=== PATIENT | male | born 1985 | race Caucasian/White ===

== ENCOUNTER 2016-11-08 10:43 | Day surgery (SDC) | payer BC ==
[2016-11-06 15:40] VITALS: BMI 25.8
[2016-11-08 11:00] VITALS: TEMP 97.2
[2016-11-08] MEDS: LACTATED RINGERS 1,000 ML IV SCH ×2 (11:09→11:17)
[2016-11-08] MEDS ORDERED: fentaNYL (PF) 50 MCG/ML 2 ML AMP ONE (11:21)
[2016-11-08] MEDS ORDERED: PROPOFOL 10 MG/ML 20 ML VIAL IV ONE (11:21)
[2016-11-08] MEDS ORDERED: MIDAZOLAM 2 MG/2 ML VIAL ONE (11:21)
--- NOTE | 2016-11-08 11:29 | P.PCN ---
Date of Procedure: 11/08/16 Procedure(s) Performed: BRIEF HISTORY: Patient is a 31-year-old, pleasant, white male, scheduled for an upper endoscopy as part of evaluation of intermittent epigastric pain. He has been having episodes of severe epigastric pain about 2 weeks ago when to the emergency room in the care of [facility] and was started on Prilosec 20 mg daily and discharged home. Patient had a similar episode 7 years ago. Because of these recurrent symptoms is concerned of peptic ulcer disease and had discomfort upper endoscopy to evaluate further. PROCEDURE PERFORMED: Esophagogastroduodenoscopy with biopsy. PREOPERATIVE DIAGNOSIS: Intermittent episodes of epigastric pain. IV sedation per anesthesia. PROCEDURE: After informed consent was obtained, the patient was brought into the endoscopy unit. IV conscious sedation was administered by Anesthesia under continuous monitoring. Initially the Olympus GIF-140 video endoscope was inserted into the mouth. Esophagus intubated without any difficulty. It was gradually advanced into the stomach and duodenum and carefully examined. The bulb and the second part of the duodenum appeared normal. Biopsies were done from this area to rule out celiac disease. The scope at this time was withdrawn to the stomach, adequately insufflated with air, and upon careful examination, mucosa of the antrum, had mild gastritis and biopsies were done from this area. The body, cardia and the fundus appeared normal. The scope was then withdrawn into the esophagus. The GE junction was located at 39 cm from the incisors. The esophagus appeared normal. There were no erosions or ulcerations seen and the patient tolerated the procedure well. IMPRESSION: 1. Mild antral gastritis gastritis. 2. No evidence of esophagitis or peptic ulcer disease. RECOMMENDATIONS: The findings of this examination were discussed with the patient as well as his family. He was advised to follow with the biopsy results. He will continue Prilosec 20 mg daily for a month and then stop the medication and take as needed.
[2016-11-08 11:48] VITALS: BP 105/65; PULSE 69; RESP 18
== END 2016-11-08 12:45 | disposition home or self-care (01) ==
LOC: ORWHC2ENDO 10:43 → EDSEX 11:55 → ORWHC2ENDO 12:45
PROVIDERS: ATTEND Internal Medicine Gastroenterology
DX: K29.50 Unspecified chronic gastritis without bleeding (principal); K21.9 Gastro-esophageal reflux disease without esophagitis; Z79.2 Long term (current) use of antibiotics; Z79.899 Other long term (current) drug therapy; Z87.891 Personal history of nicotine dependence
CPT/HCPCS: 88305; 88342; 43239; J2250; J3010; J2704

== ENCOUNTER 2017-04-14 17:08 | Emergency (ER) | payer BC ==
[2017-04-14 17:25] VITALS: BP 131/81; PULSE 78; RESP 16; TEMP 97.2
--- NOTE | 2017-04-14 17:49 | ED ---
General Adult HPI - General Chief complaint: Wound/Laceration Stated complaint: stitches infected Time Seen by Provider: 04/14/17 17:26 Source: patient, RN notes reviewed Mode of arrival: ambulatory Limitations: no limitations - History of Present Illness Initial comments: 31 yo male presents to the ER with cc of right hand suture infection. Patient has stasis placed over one week ago. He states he's noticed some puslike discharge from the areas that he was concerned. His been some redness and some pain. Patient denies any fever chills with this. Patient denies any cough cold runny nose. Patient was concerned due to his symptoms without that he should be seen. Patient denies any recent fever, chills, shortness of breath, chest pain, back pain, abdominal pain, nausea vomiting, numbness or tingling, dysuria or hematuria, constipation or diarrhea, headaches or visual changes, or any other current symptoms. - Related Data Home Medications Medication Instructions Recorded Confirmed Amoxicillin 500 mg PO Q8H 11/06/16 11/08/16 L.acidoph,Paracasei, B.lactis 1 each PO DAILY 11/06/16 11/08/16 [Probiotic] Omeprazole 40 mg PO DAILY 11/06/16 11/08/16 Vitamin B Complex 1 each PO DAILY 11/06/16 11/08/16 Previous Rx's Medication Instructions Recorded Sulfamethox-Tmp 800-160Mg [Bactrim 2 each PO Q12HR #56 tab 04/14/17 DS 800-160 mg] Allergies Allergy/AdvReac Type Severity Reaction Status Date / Time No Known Allergies Allergy Verified 04/14/17 17:25 Review of Systems ROS Statement: Those systems with pertinent positive or pertinent negative responses have been documented in the HPI. ROS Other: All systems not noted in ROS Statement are negative. Past Medical History Past Medical History: GERD/Reflux Additional Past Medical History / Comment(s): upper abdominal pain, hemorrhoids History of Any Multi-Drug Resistant Organisms: None Reported Past Surgical History: Orthopedic Surgery Additional Past Surgical History / Comment(s): lt hand surgery with screws Past Anesthesia/Blood Transfusion Reactions: No Reported Reaction Past Psychological History: No Psychological Hx Reported Smoking Status: Former smoker Past Alcohol Use History: Occasional Past Drug Use History: None Reported - Past Family History Father Family Medical History: Myocardial Infarction (DC) General Exam - General Exam Comments Initial Comments: General: The patient is awake and alert, in no distress, and does not appear acutely ill. Neck: The neck is supple, there is no tenderness. Cardiovascular: There is a regular rate and rhythm. No murmur, rub or gallop is appreciated. Respiratory: Lungs are clear to auscultation, respirations are non-labored, breath sounds are equal. No wheezes, stridor, rales, or rhonchi. Musculoskeletal: sensation intact. Full range motion of the right hand. His. Before sutures in the patient's right thumb area with some associated redness. No fluctuance noted at this time. full range of motion, 5/5 muscle strength testing. Neurological: CN II-XII intact, There are no obvious motor or sensory deficits. Coordination appears grossly intact. Speech is normal. Skin: Skin is warm and dry and no rashes or lesions are noted. Psychiatric: Normal mood and affect. Limitations: no limitations Course Vital Signs 04/14/17 17:22 Temperature 97.2 F L Pulse Rate 78 Respiratory 16 Rate Blood Pressure 131/81 O2 Sat by Pulse 99 Oximetry Procedures - Procedures Initial comment: The area was cleaned and prepped. Patient underwent suture removal of 4 sutures. Patient tolerated well. Does appear to be a infection to the area at this time. Medical Decision Making - Medical Decision Making 31 yo male presents with cc of what appears to be a right thumb laceration with sutures intact however there is concern for infection. This and sutures removed. The patient on Bactrim for infection. We discussed return for follow- up and all questions. Patient stated the Timothy they're given plan. This time we will be discharged home. - Radiology Data Radiology results: report reviewed, image reviewed Disposition Clinical Impression: Laceration of right thumb with infection, Visit for suture removal Disposition: HOME SELF-CARE Condition: Stable Instructions: Wound Infection (ED) Additional Instructions: Please use medication as discussed. Please follow up with family doctor if symptoms have not improved over the next two days. Please return to the emergency room if your symptoms increase or worsen or for any other concerns. Prescriptions: Sulfamethox-Tmp 800-160Mg [Bactrim DS 800-160 mg] 2 each PO Q12HR #56 tab Referrals: Shayan Prieto DO [STAFF PHYSICIAN] - 1-2 days Time of Disposition: 18:03
--- NOTE | 2017-04-14 18:00 | XR ---
EXAMINATION TYPE: XR hand complete RT DATE OF EXAM: 04/14/2017 CLINICAL HISTORY: Red and swollen first metacarpal area after stitches have been removed TECHNIQUE: Frontal, lateral and oblique images of the right hand are obtained. COMPARISON: None. FINDINGS: There is positional subluxation of the first metacarpal phalangeal joint. No evidence of f rank dislocation or fracture. Mild soft tissue swelling is seen over the radial aspect of the first p halanx with no subcutaneous emphysema or periosteal reaction to suggest osteomyelitis. IMPRESSION: 1. Soft tissue swelling over the lateral first digit with no periosteal reaction or subcutaneous emph ysema. No radiographic evidence of osteomalacia is. 2. There is no acute fracture or dislocation in the right hand.
== END 2017-04-14 18:12 | disposition home or self-care (01) ==
LOC: EC 17:08
DX: T81.4XXA Infection following a procedure, initial encounter (principal); L08.9 Local infection of the skin and subcutaneous tissue, unspecified; K21.9 Gastro-esophageal reflux disease without esophagitis; Z79.899 Other long term (current) drug therapy; Z87.891 Personal history of nicotine dependence; Z98.890 Other specified postprocedural states; Y83.8 Other surgical procedures as the cause of abnormal reaction of the patient, or of later complication, without mention of misadventure at the time of the procedure
CPT/HCPCS: 99283